=== PATIENT | female | born 1985 | race African-American/Black ===

== ENCOUNTER 2019-01-28 08:41 | Emergency (ER) | payer OTHER ==
[~2019-01-28] VITALS: Ht 165.1 cm; Wt 68.0 kg
[2019-01-28 09:03] LABS: URINE BLOOD NEGATIVE (Negative); URINE CLARITY CLEAR; URINE COLOR YELLOW; URINE GLUCOSE-RANDOM* NEGATIVE (Negative); URINE KETONES 2+ (Negative); URINE LEUKOCYTES-REFLEX NEGATIVE (Negative); URINE NITRITE-REFLEX NEGATIVE (Negative); URINE PROTEIN (DIPSTICK) TRACE (Negative); URINE SPECIFIC GRAVITY 1.025 (1.005-1.035)
[2019-01-28 09:08] LABS: URINE BILIRUBIN NEGATIVE (Negative)
[2019-01-28 09:09] LABS: ICTOTEST (BILI CONFIRMATORY) Negative (Negative)
[2019-01-28 09:38] LABS: ABSOLUTE NEUTROPHILS 4.1 thou/uL (1.4-8.2); BASOPHILS 0.4 % (0.0-2.0); HEMATOCRIT 39.1 % (37.0-47.0); HEMOGLOBIN 13.4 gm/dL (12.0-15.0); LYMPHOCYTES 28.9 % (24.0-44.0); MCH 32.4 pg (26.0-34.0); MCHC 34.2 g/dL (28.0-37.0); MCV 94.9 fL (80.0-100.0); MONOCYTES 7.5 % (1.0-8.0); PLATELET COUNT 238 thou/uL (150-400); POLYS 62.2 % (36.0-66.0); RBC 4.12 mil/uL (4.20-5.00); RDW 13.3 % (10.5-14.5); WBC 6.6 thou/uL (4.0-11.0)
[2019-01-28 09:41] LABS: CALCIUM 9.1 mg/dL (8.5-10.1); POTASSIUM 3.7 mmol/L (3.5-5.1)
[2019-01-28 09:47] LABS: ALBUMIN 3.8 g/dL (3.4-5.0); TOTAL BILIRUBIN 0.6 mg/dL (<0.1-1.0); TOTAL PROTEIN 7.3 g/dL (6.4-8.2)
[2019-01-28] MEDS ORDERED: BENTYL 20 MG TA20 M1 PO (10:26)
[2019-01-28] MEDS ORDERED: ZOFRAN ODT4 MG PO (10:26)
[2019-01-28] MEDS ORDERED: LOPERAMIDE 2 MG2 M1 PO (10:26)
[2019-01-28 10:40] VITALS: BP 101/49
== END 2019-01-28 10:40 | disposition home or self-care (01) ==
LOC: ER 08:41
PROVIDERS: Emergency Medicine
DX: K52.9 Noninfective gastroenteritis and colitis, unspecified (principal); F17.200 Nicotine dependence, unspecified, uncomplicated; Z88.0 Allergy status to penicillin